=== PATIENT | female | born 1965 | race Two or more races ===

== ENCOUNTER 2017-08-13 15:15 | Outpatient (CLI) | payer OTHER ==
[~2017-08-13 15:15] MED LIST: CATAFLAM50 MG PO
== END 2017-08-13 15:22 | disposition home or self-care (01) ==
LOC: LAB 15:15
DX: K64.9 Unspecified hemorrhoids (principal)

== ENCOUNTER 2017-10-10 13:35 | Outpatient (CLI) | payer OTHER | END 2017-10-10 13:45 | disposition home or self-care (01) | LOC: LAB 13:35 | DX: R50.9 Fever, unspecified (principal); R30.0 Dysuria ==

== ENCOUNTER → 2017-10-10 | Outpatient (CLI) | payer OTHER ==
[~2017-10-10] VITALS: Ht 152.4 cm; Wt 61.2 kg
== END | disposition home or self-care (01) ==
LOC: PPHC 12:04
DX: R30.0 Dysuria (principal)

== ENCOUNTER 2018-03-03 06:59 | Outpatient (CLI) | payer OTHER | END 2018-03-03 07:04 | disposition home or self-care (01) | LOC: LAB 06:59 | DX: D64.89 Other specified anemias (principal); E78.00 Pure hypercholesterolemia, unspecified; I10 Essential (primary) hypertension; E13.69 Other specified diabetes mellitus with other specified complication; E03.8 Other specified hypothyroidism; N39.0 Urinary tract infection, site not specified; R82.79 Other abnormal findings on microbiological examination of urine ==

== ENCOUNTER 2018-03-03 08:44 | Outpatient (CLI) | payer OTHER | END 2018-03-03 08:47 | disposition home or self-care (01) | LOC: MAMO-SONO 08:44 | DX: Z12.31 Encounter for screening mammogram for malignant neoplasm of breast (principal); N60.01 Solitary cyst of right breast ==

== ENCOUNTER 2021-10-02 08:00 | Outpatient (CLI) | payer OTHER | END 2021-10-02 08:30 | disposition home or self-care (01) | LOC: PPH VACUNA 08:00 | PROVIDERS: ATTEND Emergency Medicine Pediatric Emergency Medicine | DX: Z23 Encounter for immunization (principal) ==

== ENCOUNTER 2022-11-04 05:17 | Day surgery (SDC) | payer OTHER ==
[~2022-11-04] VITALS: Ht 157.5 cm; Wt 56.7 kg
[2022-11-04] MEDS ORDERED: PERCOCET 5-3251 EACH PO (08:34)
[2022-11-04] MEDS ORDERED: RECTICARE30 GM TOP (08:35)
== END 2022-11-04 15:20 | disposition home or self-care (01) ==
LOC: CIR.AMB 05:17
PROVIDERS: ATTEND Surgery
DX: K64.3 Fourth degree hemorrhoids (principal); K62.1 Rectal polyp; K92.1 Melena; R19.4 Change in bowel habit; Z20.822 Contact with and (suspected) exposure to COVID-19; K64.4 Residual hemorrhoidal skin tags